=== PATIENT | female | born 1965 | race Caucasian/White ===

== ENCOUNTER 2017-10-03 13:30 | Emergency (ER) | payer BC | END 2017-10-03 18:48 | disposition home or self-care (01) | LOC: FTE 13:30 | DX: S52.024A Nondisplaced fracture of olecranon process without intraarticular extension of right ulna, initial encounter for closed fracture (principal); W18.39XA Other fall on same level, initial encounter; Y92.009 Unspecified place in unspecified non-institutional (private) residence as the place of occurrence of the external cause | CPT/HCPCS: 29105; 73080-RT; 99283-25 ==

== ENCOUNTER 2017-11-13 08:24 | Day surgery (SDC) | payer BC ==
[2017-11-13] MEDS ORDERED: LACTATED RINGER'S 1,000 ML IV* (09:30)
[2017-11-13] MEDS ORDERED: LIDOCAINE 1%/EPI 30 ML INJ (09:49)
[2017-11-13] MEDS ORDERED: POLYMYXIN/BACITRACIN 1L IRRIG (09:49)
[2017-11-13] MEDS ORDERED: BUPIVACAINE 0.5% (SDV) 30 ML INJ ×2 (09:49→11:55)
[2017-11-13] MEDS ORDERED: MIDAZOLAM 1 MG/ML 2 ML INJ (10:23)
[2017-11-13] MEDS: BUPIVACAINE 0.5%/EPI (SDV) 30 ML INJ INJ (11:11)
[2017-11-13] MEDS ORDERED: VANCOMYCIN 1 GM INJ (11:47)
[2017-11-13] MEDS ORDERED: LIDOCAINE 2% (SDV) 5 ML INJ (11:54)
[2017-11-13] MEDS ORDERED: CEFAZOLIN 1 GM INJ (11:54)
[2017-11-13] MEDS ORDERED: ROCURONIUM 50 MG INJ (11:54)
[2017-11-13] MEDS ORDERED: PROPOFOL 20 ML (11:54)
[2017-11-13] MEDS ORDERED: ROPIVACAINE 0.5 % 30 ML VIAL (11:55)
[2017-11-13] MEDS ORDERED: ONDANSETRON 4 MG INJ (11:55)
[2017-11-13] MEDS ORDERED: ONDANSETRON 4 MG INJ IV (13:00)
[2017-11-13] MEDS ORDERED: HYDROmorphONE (0.2 MG/ML) 10ML SYG IV (13:00)
[2017-11-13] MEDS ORDERED: NALOXONE (0.4 MG/ML) INJ IV (13:00)
[2017-11-13] MEDS ORDERED: MEPERIDINE 25 MG INJ IV (13:00)
[2017-11-13] MEDS ORDERED: METOCLOPRAMIDE 10 MG INJ IV (13:00)
[2017-11-13] MEDS ORDERED: DIPHENHYDRAMINE 50 MG INJ IV (13:00)
[2017-11-13] MEDS ORDERED: FENTAnyl 50 MCG/ML VIAL IV (13:00)
[2017-11-13] MEDS: HYDROmorphONE (0.2 MG/ML) 10ML SYG IV (13:07)
[2017-11-13] MEDS: OXYCODONE/ACETAMINOPHEN (5/325) TAB PO (13:49)
== END 2017-11-13 14:24 | disposition home or self-care (01) ==
LOC: SDS 08:24
DX: S52.031A Displaced fracture of olecranon process with intraarticular extension of right ulna, initial encounter for closed fracture (principal); X58.XXXA Exposure to other specified factors, initial encounter; Y93.9 Activity, unspecified; Y99.9 Unspecified external cause status; Y92.9 Unspecified place or not applicable
CPT/HCPCS: 24685; 73080-RT; 84703

== ENCOUNTER 2018-08-14 08:39 | Emergency (ER) | payer BC ==
[2018-08-14] MEDS: KETOROLAC 60 MG INJ IM (09:12)
[2018-08-14] MEDS: morphine LIQ (10 MG/5 ML) CUP PO (11:04)
== END 2018-08-14 13:05 | disposition home or self-care (01) ==
LOC: FTE 08:39
DX: S32.009A Unspecified fracture of unspecified lumbar vertebra, initial encounter for closed fracture (principal); F17.210 Nicotine dependence, cigarettes, uncomplicated; W19.XXXA Unspecified fall, initial encounter; Y92.9 Unspecified place or not applicable; Z85.41 Personal history of malignant neoplasm of cervix uteri
CPT/HCPCS: 72131; 96372; 99285-25